=== PATIENT | male | born 1980 | race Caucasian/White ===

== ENCOUNTER 2018-04-07 14:53 | Inpatient (IN) | payer OTHER ==
[2018-04-07 16:04] VITALS: BMI 23.7
--- NOTE | 2018-04-07 16:32 | HP ---
COWS - Scale Resting Pulse: 0= NE 80 or Below Sweatin=Flushed/Facial Moisture Restless Observation: 1= Difficult to Sit Still Pupil Size: 0= Normal to Room Light Bone or Joint Aches: 2= Severe Diffuse Aches Runny Nose/ Eye Tearin= Runny Nose/Eyes GI Upset > 30mins: 2= Nausea/Diarrhea Tremor Observation: 2= Slight Tremor Visible Yawning Observation: 2= >3x During Session Anxiety or Irritability: 2=Irritable/Anxious Goose Flesh Skin: 3=Piloerection COWS Score: 18 CIWA Score - Admission Criteria OASAS Guidelines: Admission for Medically Managed Detox: Requires at least one of the followin. CIWA greater than 12 2. Seizures within the past 24 hours 3. Delirium tremens within the past 24 hours 4. Hallucinations within the past 24 hours 5. Acute intervention needed for co occurring medical disorder 6. Acute intervention needed for co occurring psychiatric disorder 7. Severe withdrawal that cannot be handled at a lower level of care (continued vomiting, continued diarrhea, abnormal vital signs) requiring intravenous medication and/or fluids 8. Admission ROS BHS - HPI Chief Complaint: I need to get my life together. I am tired of the lifestyle. Allergies/Adverse Reactions: Allergies Allergy/AdvReac Type Severity Reaction Status Date / Time iodine Allergy Intermediate Swelling Verified 04/07/18 16:15 shellfish derived Allergy Intermediate Swelling Verified 04/07/18 16:15 diphenhydramine AdvReac Verified 04/07/18 16:15 [From Benadryl] History of Present Illness: Pt is a 37yr old male with a history of heroin dependence seeking detox for treatment. Pt had 8months of sobriety and recently relapsed and is looking for detox. Exam Limitations: No Limitations - Ebola screening Have you traveled outside of the country in the last 21 days: No Have you had contact with anyone from an Ebola affected area: No Have you been sick,other than usual withdrawal symptoms: No Do you have a fever: No - Review of Systems Constitutional: Chills, Diaphoresis, Loss of Appetite, Night Sweats, Changes in sleep EENT: reports: Tearing, Nose Congestion Respiratory: reports: No Symptoms reported Cardiac: reports: No Symptoms Reported GI: reports: Constipated, Diarrhea, Nausea, Poor Appetite, Poor Fluid Intake : reports: No Symptoms Reported Musculoskeletal: reports: Back Pain, Joint Pain Integumentary: reports: Flushing, Sweating Neuro: reports: Tingling, Tremors Endocrine: reports: Excessive Sweating, Flushing, Intolerance to Cold, Intolerance to Heat Hematology: reports: No Symptoms Reported Psychiatric: reports: No Sypmtoms Reported, Judgement Intact, Mood/Affect Appropiate, Orientated x3, Agitated, Anxious Other Systems: Reviewed and Negative Patient History - Patient Medical History Hx Anemia: No Hx Asthma: No Hx Chronic Obstructive Pulmonary Disease (COPD): No Hx Cancer: No Hx Cardiac Disorders: No Hx Congestive Heart Failure: No Hx Hypertension: Yes (not taking any meds) Hx Hypercholesterolemia: No Hx Pacemaker: No HX Cerebrovascular Accident: No Hx Seizures: No Hx Dementia: No Hx Diabetes: No Hx Gastrointestinal Disorders: No Hx Liver Disease: No Hx Genitourinary Disorders: No Hx Sexually Transmitted Disorders: No Hx Renal Disease (ESRD): No Hx Thyroid Disease: No Hx Human Immunodeficiency Virus (HIV): No (tested negative in Jan 2014) Hx Hepatitis C: Yes (received treatment) Hx Depression: No Hx Suicide Attempt: No (pt denies) Hx Bipolar Disorder: No Hx Schizophrenia: No - Patient Surgical History Past Surgical History: No Hx Neurologic Surgery: No Hx Cataract Extraction: No Hx Cardiac Surgery: No Hx Lung Surgery: No Hx Breast Surgery: No Hx Breast Biopsy: No Hx Abdominal Surgery: No Hx Appendectomy: No Hx Cholecystectomy: No Hx Genitourinary Surgery: No Hx Section: No Hx Orthopedic Surgery: No Anesthesia Reaction: No - PPD History Previous Implant?: Yes Documented Results: Negative w/o proof Implanted On Prior [facility] Admission?: Yes Date: 01/29/14 PPD to be Administered?: Yes - Reproductive History Patient is a Female of Child Bearing Age (11 -55 yrs old): No - Smoking Cessation Smoking history: Current every day smoker Have you smoked in the past 12 months: Yes Aproximately how many cigarettes per day: 20 Hx Chewing Tobacco Use: No Initiated information on smoking cessation: Yes 'Breaking Loose' booklet given: 04/07/18 - Substance & Tx. History Hx Alcohol Use: No Hx Substance Use: Yes Substance Use Type: Heroin, Marijuana Hx Substance Use Treatment: Yes (last detox [facility] 03/2018) - Substances Abused Heroin Route: Injection Frequency: Daily Amount used: 10 bags Age of first use: 18 Date of Last Use: 04/06/18 Marijuana/Hashish Route: Smoking Frequency: Daily Amount used: 1-2 blunts Age of first use: 7 Date of Last Use: 04/06/18 Family Disease History - Family Disease History Family Disease History: Heart Disease: Father (HTN), CA: Sister (uterine), Respiratory: Mother (asthma) Admission Physical Exam [facility] - Vital Signs Vital Signs: Vital Signs - 24 hr 04/07/18 15:59 Temperature 97.2 F L Pulse Rate 70 Respiratory 20 Rate Blood Pressure 142/93 - Physical General Appearance: Yes: Appropriately Dressed, Moderate Distress, Thin, Tremorous, Irritable, Sweating, Anxious HEENTM: Yes: Normal Voice, Nasal Congestion Respiratory: Yes: Lungs Clear, Normal Breath Sounds, No Respiratory Distress Neck: Yes: No masses,lesions,Nodules Breast: Yes: Within Normal Limits Cardiology: Yes: Regular Rhythm, Regular Rate, S1, S2 Abdominal: Yes: Normal Bowel Sounds, Non Tender, Flat Genitourinary: Yes: Within Normal Limits Back: Yes: Normal Inspection Musculoskeletal: Yes: full range of Motion, Back pain Extremities: Yes: Normal Capillary Refill, Normal Inspection, Non-Tender, Tremors Neurological: Yes: Fully Oriented, Alert, Normal Response Integumentary: Yes: Normal Color, Diaphoresis, Track [place] Lymphatic: Yes: Within Normal Limits - Diagnostic (1) Opioid dependence with withdrawal Current Visit: Yes Status: Chronic (2) Nicotine dependence Current Visit: Yes Status: Chronic Qualifiers: Nicotine product type: cigarettes Substance use status: uncomplicated Qualified Code(s): F17.210 - Nicotine dependence, cigarettes, uncomplicated Cleared for Admission [facility] - Detox or Rehab [facility] Level of Care: Medically Managed Detox Regimen/Protocol: Methadone [facility] Breath Alcohol Content Breath Alcohol Content: 0 Urine Drug Screen - Results Drug Screen Negative: No Urine Drug Screen Results: THC-Marijuana, KAUR-Cocaine, OPI-Opiates, BZO- Benzodiazepines, FEN-Fentanyl Inpatient Rehab Admission - Rehab Decision to Admit Inpatient rehab admission?: No
[2018-04-07] MEDS ORDERED: IBUPROFEN 400 MG TABLET (FP) PO PRN (16:47)
[2018-04-07] MEDS ORDERED: MAG HYDROX/AL HYDROX/SIMETH 30 ML UNIT-DOSE CUP PO PRN (16:47)
[2018-04-07] MEDS ORDERED: ACETAMINOPHEN 325 MG TABLET (FP) PO PRN (16:47)
[2018-04-07] MEDS ORDERED: MAGNESIUM CITRATE 300 ML BOTTLE PO PRN (16:47)
[2018-04-07] MEDS ORDERED: LOPERAMIDE HCL 2 MG CAPSULE PO PRN (16:47)
[2018-04-07] MEDS ORDERED: guaiFENesin/D-METHORPHAN HB 10 ML UNIT-DOSE CUPS PO PRN (16:47)
[2018-04-07] MEDS ORDERED: NICOTINE POLACRILEX 4 MG GUM BC PRN (16:47)
[2018-04-07] MEDS ORDERED: MENTHOL/PHENOL 1 EACH UD MM PRN (16:47)
[2018-04-07] MEDS ORDERED: MAGNESIUM HYDROX 2400MG/30ML ORAL SUSPENSION 30 ML CUP PO PRN (16:47)
[2018-04-07] MEDS ORDERED: METHADONE HCL 10 MG TABLET (FOR DETOX USE ONLY) PO ONE ×2 (17:00→23:00)
[2018-04-07] MEDS: diazePAM 5 MG TABLET PO PRN (18:00)
[2018-04-07] MEDS: THIAMINE HCL 100 MG TABLET (FP) PO SCH (22:40)
[2018-04-08] MEDS ORDERED: METHADONE HCL 10 MG TABLET (FOR DETOX USE ONLY) PO ONE (10:00)
[2018-04-08] MEDS: NICOTINE 21 MG/24 HOURS TOPICAL PATCH TD SCH (10:14)
[2018-04-08] MEDS: PRENATAL VITAMINS W/ FOLIC ACID TABLET (FP) PO SCH (10:14)
[2018-04-08] MEDS: diazePAM 5 MG TABLET PO PRN ×3 (10:14→22:16)
[2018-04-08 10:57] LABS: HEMATOCRIT 41.1 % (35.4-49); HEMOGLOBIN 14.1 GM/dL (11.7-16.9); MCHC 34.4 g/dl (32.0-35.9); MEAN CELL VOLUME 90.1 fl (80-96); MEAN PLT VOLUME 7.6 fl (7.5-11.1); PLATELET COUNT 323 K/MM3 (134-434); RBC 4.56 M/mm3 (4.00-5.60); RDW 14.3 % (11.9-15.9); WHITE BLOOD COUNT 5.5 K/mm3 (4.0-10.0)
[2018-04-08 11:03] LABS: ALBUMIN 3.8 g/dl (3.4-5.0); ALK PHOS 99 U/L (45-117); ANION GAP 5 MMOL/L (8-16); BILIRUBIN,TOTAL 0.4 mg/dL (0.2-1); BLOOD UREA NITROGEN 9 mg/dL (7-18); CALCIUM 9.2 mg/dL (8.5-10.1); CHLORIDE 104 mmol/L (98-107); CO2 30 mmol/L (21-32); CREATININE 0.8 mg/dL (0.55-1.3); GLUCOSE,RANDOM 86 mg/dL (74-106); POTASSIUM 4.4 mmol/L (3.5-5.1); SGOT/AST 17 U/L (15-37); SGPT/ALT 18 U/L (13-61); SODIUM 139 mmol/L (136-145); TOT PROT 7.1 g/dl (6.4-8.2)
[2018-04-08] MEDS ORDERED: ONDANSETRON *ODT* 4 MG TABLET SL PRN (11:03)
--- NOTE | 2018-04-08 11:08 | PN ---
BHS COWS - Scale Resting Pulse: 0= [place] 80 or Below Sweatin=Flushed/Facial Moisture Restless Observation: 1= Difficult to Sit Still Pupil Size: 0= Normal to Room Light Bone or Joint Aches: 2= Severe Diffuse Aches Runny Nose/ Eye Tearin= Runny Nose/Eyes GI Upset > 30mins: 2= Nausea/Diarrhea Tremor Observation of Outstretched Hands: 2= Slight Tremor Visible Yawning Observation: 1= 1-2x During Session Anxiety or Irritability: 2=Irritable/Anxious Goose Flesh Skin: 3=Piloerection COWS Score: 17 BHS Progress Note (SOAP) Subjective: body aches sweats nasal congestion teary eyes nausea agitation interrupted sleep Objective: 04/08/18 11:06 Vital Signs Temperature 98.2 F 04/08/18 09:29 Pulse Rate 61 04/08/18 09:29 Respiratory Rate 18 04/08/18 09:29 Blood Pressure 137/97 04/08/18 09:29 O2 Sat by Pulse Oximetry (%) Laboratory Tests 04/08/18 08:00 Sodium 139 Potassium 4.4 Chloride 104 Carbon Dioxide 30 Anion Gap 5 L BUN 9 Creatinine 0.8 Creat Clearance w eGFR > 60 Random Glucose 86 Calcium 9.2 Total Bilirubin 0.4 AST 17 ALT 18 Alkaline Phosphatase 99 Total Protein 7.1 Albumin 3.8 rest of labs pending aaox3 ambulating no acute distress Assessment: 04/08/18 11:06 withdrawal sx Plan: continue detox increase fluids zofran SL prn clonidine 0.1mg bid with parameters
[2018-04-08] MEDS: cloNIDine HCL 0.1 MG TABLET PO SCH ×2 (15:06→22:14)
[2018-04-08] MEDS: THIAMINE HCL 100 MG TABLET (FP) PO SCH (22:14)
[2018-04-08] MEDS: MELATONIN 5 MG TABLETS PO PRN (22:14)
--- NOTE | 2018-04-09 02:39 | EKG ---
Test Reason : Blood Pressure : / mmHG Vent. Rate : 058 BPM Atrial Rate : 058 BPM P-R Int : 128 ms QRS Dur : 088 ms QT Int : 416 ms P-R-T Axes : 037 064 053 degrees QTc Int : 408 ms POOR DATA QUALITY, INTERPRETATION MAY BE ADVERSELY AFFECTED SINUS BRADYCARDIA WITH SINUS ARRHYTHMIA OTHERWISE NORMAL ECG NO PREVIOUS ECGS AVAILABLE Confirmed by NUIQUE NAYLOR MD ([id number]) on 04/09/2018 2:39:13 AM Referred By: Confirmed By:UNIQUE NAYLOR MD
[2018-04-09] MEDS ORDERED: METHADONE HCL 5 MG TABLET (FOR DETOX USE ONLY) PO ONE (10:00)
[2018-04-09] MEDS: cloNIDine HCL 0.1 MG TABLET PO SCH ×2 (10:43→23:05)
[2018-04-09] MEDS: PRENATAL VITAMINS W/ FOLIC ACID TABLET (FP) PO SCH (10:43)
[2018-04-09] MEDS: NICOTINE 21 MG/24 HOURS TOPICAL PATCH TD SCH (10:44)
[2018-04-09] MEDS: diazePAM 5 MG TABLET PO PRN ×2 (10:45→23:07)
[2018-04-09] MEDS ORDERED: CYCLOBENZAPRINE HCL 10 MG TABLET (FP) PO PRN (13:03)
--- NOTE | 2018-04-09 15:13 | PN ---
BHS COWS - Scale Resting Pulse: 0= NE 80 or Below Sweatin= Chills/Flushing Restless Observation: 0= Sits Still Pupil Size: 0= Normal to Room Light Bone or Joint Aches: 2= Severe Diffuse Aches Runny Nose/ Eye Tearin= Runny Nose/Eyes GI Upset > 30mins: 2= Nausea/Diarrhea Tremor Observation of Outstretched Hands: 0= None Yawning Observation: 1= 1-2x During Session Anxiety or Irritability: 2=Irritable/Anxious Goose Flesh Skin: 0=Smooth Skin COWS Score: 10 BHS Progress Note (SOAP) Subjective: Interrupted Sleep, Poor Appetite, Sweating, Diarrhea, Stomach Cramping, Body Aches, H/A, Hot / Cold Sensations. Objective: PATIENT A & O X 2 (UNCERTAIN ABOUT CURRENT DAY / DATE). PATIENT OBSERVED AMBULATING ON UNIT. IN NO ACUTE DISTRESS. 04/09/18 15:11 Vital Signs Temperature 98.2 F 04/09/18 09:25 Pulse Rate 61 04/09/18 09:25 Respiratory Rate 16 04/09/18 09:25 Blood Pressure 122/75 04/09/18 09:25 O2 Sat by Pulse Oximetry (%) Laboratory Tests 04/08/18 04/08/18 04/08/18 08:00 08:00 08:00 WBC 5.5 RBC 4.56 Hgb 14.1 Hct 41.1 MCV 90.1 MCH 31.0 MCHC 34.4 RDW 14.3 Plt Count 323 D MPV 7.6 Sodium 139 Potassium 4.4 Chloride 104 Carbon Dioxide 30 Anion Gap 5 L BUN 9 Creatinine 0.8 Creat Clearance w eGFR > 60 Random Glucose 86 Calcium 9.2 Total Bilirubin 0.4 AST 17 ALT 18 Alkaline Phosphatase 99 Total Protein 7.1 Albumin 3.8 RPR Titer HIV 1&2 Antibody Screen Negative HIV P24 Antigen Negative 04/08/18 08:00 WBC RBC Hgb Hct MCV MCH MCHC RDW Plt Count MPV Sodium Potassium Chloride Carbon Dioxide Anion Gap BUN Creatinine Creat Clearance w eGFR Random Glucose Calcium Total Bilirubin AST ALT Alkaline Phosphatase Total Protein Albumin RPR Titer Nonreactive HIV 1&2 Antibody Screen HIV P24 Antigen LABS NOTED. Assessment: 04/09/18 15:12 WITHDRAWAL SYMPTOMS. Plan: CONTINUE DETOX. INCREASE DAILY PO FLUID INTAKE. ENSURE FOR CALORIE SUPPLEMENTATION. PRN IMMODIUM FOR DIARRHEA.
[2018-04-09] MEDS: THIAMINE HCL 100 MG TABLET (FP) PO SCH (23:05)
[2018-04-10] MEDS: MELATONIN 5 MG TABLETS PO PRN ×2 (01:11→22:18)
[2018-04-10] MEDS ORDERED: METHADONE HCL 5 MG TABLET (FOR DETOX USE ONLY) PO ONE (10:00)
[2018-04-10] MEDS: NICOTINE 21 MG/24 HOURS TOPICAL PATCH TD SCH (10:22)
[2018-04-10] MEDS: cloNIDine HCL 0.1 MG TABLET PO SCH ×2 (10:23→22:18)
[2018-04-10] MEDS: PRENATAL VITAMINS W/ FOLIC ACID TABLET (FP) PO SCH (10:23)
[2018-04-10] MEDS: diazePAM 5 MG TABLET PO PRN (10:25)
--- NOTE | 2018-04-10 13:29 | PN ---
BHS Progress Note (SOAP) Subjective: interrupted sleep, sweats, shakes lbp Objective: 04/10/18 13:27 Vital Signs Temperature 97.9 F 04/10/18 08:54 Pulse Rate 59 L 04/10/18 08:54 Respiratory Rate 18 04/10/18 08:54 Blood Pressure 112/65 04/10/18 08:54 O2 Sat by Pulse Oximetry (%) Laboratory Tests 04/08/18 04/08/18 04/08/18 08:00 08:00 08:00 WBC 5.5 RBC 4.56 Hgb 14.1 Hct 41.1 MCV 90.1 MCH 31.0 MCHC 34.4 RDW 14.3 Plt Count 323 D MPV 7.6 Sodium 139 Potassium 4.4 Chloride 104 Carbon Dioxide 30 Anion Gap 5 L BUN 9 Creatinine 0.8 Creat Clearance w eGFR > 60 Random Glucose 86 Calcium 9.2 Total Bilirubin 0.4 AST 17 ALT 18 Alkaline Phosphatase 99 Total Protein 7.1 Albumin 3.8 RPR Titer HIV 1&2 Antibody Screen Negative HIV P24 Antigen Negative 04/08/18 08:00 WBC RBC Hgb Hct MCV MCH MCHC RDW Plt Count MPV Sodium Potassium Chloride Carbon Dioxide Anion Gap BUN Creatinine Creat Clearance w eGFR Random Glucose Calcium Total Bilirubin AST ALT Alkaline Phosphatase Total Protein Albumin RPR Titer Nonreactive HIV 1&2 Antibody Screen HIV P24 Antigen pt aox3 in nad , lying in bed back decreased rom Assessment: 04/10/18 13:28 withdrawal sx's lbp Plan: cont. detox increase fluids flexeril 5mg tid rest ensure bid
[2018-04-10] MEDS: THIAMINE HCL 100 MG TABLET (FP) PO SCH (22:18)
[2018-04-10] MEDS: CYCLOBENZAPRINE HCL 10 MG TABLET (FP) PO PRN (22:18)
[2018-04-11] MEDS ORDERED: METHADONE HCL 10 MG TABLET (FOR DETOX USE ONLY) PO ONE (10:00)
[2018-04-11] MEDS: cloNIDine HCL 0.1 MG TABLET PO SCH ×2 (10:46→22:51)
[2018-04-11] MEDS: PRENATAL VITAMINS W/ FOLIC ACID TABLET (FP) PO SCH (10:46)
[2018-04-11] MEDS: NICOTINE 21 MG/24 HOURS TOPICAL PATCH TD SCH (10:46)
--- NOTE | 2018-04-11 14:15 | PN ---
BHS Progress Note (SOAP) Subjective: PT REPORTS DECREASED ANXIETY, IRRITABILITY, SWEATS. C/O INTERMITTENT SLEEP. Objective: 04/11/18 14:15 Vital Signs 04/11/18 10:04 Temperature 97.9 F Pulse Rate 54 L Respiratory 16 Rate Blood Pressure 104/58 L Laboratory Tests 04/08/18 04/08/18 04/08/18 08:00 08:00 08:00 WBC 5.5 RBC 4.56 Hgb 14.1 Hct 41.1 MCV 90.1 MCH 31.0 MCHC 34.4 RDW 14.3 Plt Count 323 D MPV 7.6 Sodium 139 Potassium 4.4 Chloride 104 Carbon Dioxide 30 Anion Gap 5 L BUN 9 Creatinine 0.8 Creat Clearance w eGFR > 60 Random Glucose 86 Calcium 9.2 Total Bilirubin 0.4 AST 17 ALT 18 Alkaline Phosphatase 99 Total Protein 7.1 Albumin 3.8 RPR Titer HIV 1&2 Antibody Screen Negative HIV P24 Antigen Negative 04/08/18 08:00 WBC RBC Hgb Hct MCV MCH MCHC RDW Plt Count MPV Sodium Potassium Chloride Carbon Dioxide Anion Gap BUN Creatinine Creat Clearance w eGFR Random Glucose Calcium Total Bilirubin AST ALT Alkaline Phosphatase Total Protein Albumin RPR Titer Nonreactive HIV 1&2 Antibody Screen HIV P24 Antigen Assessment: 04/11/18 14:15 WITHDRAWAL SX Plan: CONTINUE DETOX
[2018-04-11] MEDS: MELATONIN 5 MG TABLETS PO PRN (22:50)
[2018-04-11] MEDS: THIAMINE HCL 100 MG TABLET (FP) PO SCH (22:51)
[2018-04-11] MEDS: CYCLOBENZAPRINE HCL 10 MG TABLET (FP) PO PRN (22:51)
[2018-04-12] MEDS ORDERED: METHADONE HCL 5 MG TABLET (FOR DETOX USE ONLY) PO ONE (06:00)
[2018-04-12 06:29] VITALS: BP 107/54; PULSE 45; TEMP 97.7
--- NOTE | 2018-04-12 12:45 | DS ---
[facility] Detox Discharge Summary Admission Date: 04/07/18 Discharge Date: 04/12/18 - History Present History: Cannabis Dependence, Opioid Dependence Additional Comments: Patient completed detox successfully. Patient is A/A/Ox3, in nad, vss, ambulatory. Patient scheduled for discharge today; as per patient, he will be transported to [facility] inpatient Rehab from here today. Instructed to follow up with his PCP after completed rehab or in 1-2 weeks if no rehab. Pertinent Past History: HTN Hepatitis C Nicotine dependence Opioid dependence Cannabis use disorder - Physical Exam Results Vital Signs: Vital Signs Temperature 97.7 F 04/12/18 06:00 Pulse Rate 45 L 04/12/18 06:00 Respiratory Rate 18 04/12/18 06:00 Blood Pressure 107/54 L 04/12/18 06:00 O2 Sat by Pulse Oximetry (%) Pulse rate of 45, bradycardic, asymptomatic, encouraged PO water hydration Pertinent Admission Physical Exam Findings: Withdrawal symptoms Laboratory Tests 04/08/18 04/08/18 04/08/18 08:00 08:00 08:00 WBC 5.5 RBC 4.56 Hgb 14.1 Hct 41.1 MCV 90.1 MCH 31.0 MCHC 34.4 RDW 14.3 Plt Count 323 D MPV 7.6 Sodium 139 Potassium 4.4 Chloride 104 Carbon Dioxide 30 Anion Gap 5 L BUN 9 Creatinine 0.8 Creat Clearance w eGFR > 60 Random Glucose 86 Calcium 9.2 Total Bilirubin 0.4 AST 17 ALT 18 Alkaline Phosphatase 99 Total Protein 7.1 Albumin 3.8 RPR Titer HIV 1&2 Antibody Screen Negative HIV P24 Antigen Negative 04/08/18 08:00 WBC RBC Hgb Hct MCV MCH MCHC RDW Plt Count MPV Sodium Potassium Chloride Carbon Dioxide Anion Gap BUN Creatinine Creat Clearance w eGFR Random Glucose Calcium Total Bilirubin AST ALT Alkaline Phosphatase Total Protein Albumin RPR Titer Nonreactive HIV 1&2 Antibody Screen HIV P24 Antigen Labs reviewed - Treatment Hospital Course: Detox Protocol Followed, Detoxed Safely, Responded well, Discharged Condition Good, Rehab Referral Accepted - Medication Discharge Medications: Ambulatory Orders NK [No Known Home Medication] 04/07/18 - Diagnosis (1) HTN (hypertension) Current Visit: Yes Status: Acute (2) Hepatitis C Current Visit: Yes Status: Acute (3) Cannabis use disorder, mild, abuse Current Visit: Yes Status: Acute (4) Nicotine dependence Current Visit: Yes Status: Chronic Qualifiers: Nicotine product type: cigarettes Substance use status: uncomplicated Qualified Code(s): F17.210 - Nicotine dependence, cigarettes, uncomplicated (5) Opioid dependence with withdrawal Current Visit: Yes Status: Chronic - AMA Did Patient Leave Against Medical Advice: No ([facility] as [facility] patient)
== END 2018-04-12 09:43 | disposition home or self-care (01) | DRG 773 ==
LOC: YASAS 14:53 → Y6N 16:48
PROVIDERS: ADMIT Surgery; ATTEND Surgery
PROC: HZ2ZZZZ Detoxification Services for Substance Abuse Treatment (ICD-10-PCS; principal; 2018-04-07)
DX: F11.23 Opioid dependence with withdrawal (principal); F12.10 Cannabis abuse, uncomplicated; F17.210 Nicotine dependence, cigarettes, uncomplicated; I10 Essential (primary) hypertension; B18.2 Chronic viral hepatitis C; Z91.013 Allergy to seafood; Z59.0 Homelessness
CPT/HCPCS: 36415; 80053; 85027; 86593; 87389; 93005; 93010; J0735